=== PATIENT | female | born 1980 | race Caucasian/White ===

== ENCOUNTER 2017-02-14 13:05 | Emergency (ER) | payer BC ==
[2017-02-14 14:59] VITALS: BP 148/92
--- NOTE | 2017-02-14 15:09 | UC ---
Dental HPI - HPI Summary HPI Summary: 36 female presents to with complaints of left upper dental pain that began on tuesday and has since worsened. Patient is experiencing pain of left side of face/jaw. Patient denies drainage, swelling, trouble breathing or trouble swallowing. Does have trouble chewing and eating due to pain. Is able to eat soft foods and drink liquids. Denies fever/chills. Has had root canal on tooth before. Denies any known trauma. No other complaints. No PMHx. Has been taking ibuprofen/aleve without relief, and using topical ambical. - History of Current Complaint Chief Complaint: UCDentalProblem Stated Complaint: DENTAL COMPLAINT Time Seen by Provider: 02/14/17 14:52 Hx Obtained From: Patient Hx Last Menstrual Period: unknown, nexplanon Onset/Duration: Sudden Onset, Lasting Days, Still Present, Worse Since Severity: Moderate Pain Intensity: 9 Pain Scale Used: 0-10 Numeric Aggravating Factor(s): Chewing Alleviating Factor(s): Topical Meds - for ~10minutes - Allergies/Home Medications Allergies/Adverse Reactions: Allergies Allergy/AdvReac Type Severity Reaction Status Date / Time Sulfamethoxazole Allergy Unknown Unknown Verified 02/14/17 14:59 w/Trimethoprim Reaction [From Bactrim] Details Home Medications: Home Medications Insulin Aspart Protamine & Asp [Novolog Mix 70/30 (70-30) 100 Unit/ml] 1 inj SC TID 02/14/17 [History Confirmed 02/14/17] Insulin GLARGINE(*) [Lantus(*)] 14 units SUBCUT Q24H 02/14/17 [History Confirmed 02/14/17] PMH/Surg Hx/FS Hx/Imm Hx - Additional Past Medical History Additional PMH: Denies DM HTN and asthma - Surgical History Surgical History: Yes Surgery Procedure, Year, and Place: cyst left ovary--benign. back surgery/ herniated disc L-S spine - Family History Known Family History: Positive: None - Social History Alcohol Use: Rare Substance Use Type: None Smoking Status (MU): Never Smoked Tobacco - Immunization History Vaccination Up to Date: Yes Review of Systems Constitutional: Negative Skin: Negative ENT: Dental Pain Respiratory: Negative Cardiovascular: Negative Neurological: Negative All Other Systems Reviewed And Are Negative: Yes Physical Exam Triage Information Reviewed: Yes Appearance: Well-Appearing, No Pain Distress, Well-Nourished Vital Signs: Initial Vital Signs Temp 98.7 F 02/14/17 14:51 Pulse 82 02/14/17 14:51 Resp 16 02/14/17 14:51 BP 148/92 02/14/17 14:51 Pulse Ox 98 02/14/17 14:51 elevated BP patient in pain, follow up recheck in 2-4 weeks Vital Signs Reviewed: Yes Eyes: Positive: Conjunctiva Clear ENT: Positive: Hearing grossly normal, Pharynx normal, TMs normal, Uvula midline - no sign of peritonsillar abscess. patent airway. Negative: Tonsillar swelling, Tonsillar exudate, Trismus, Muffled voice, Sinus tenderness Dental: Positive: Percussion Tenderness @, Gross Decay/Caries @, Dental Fracture @, Cervical Lymphadenopathy, Other: - tender left upper #16. normal parotid and glands on palpation. no obvious edema. Negative: Abscess @ - no visualized Neck: Positive: Supple, Nontender Respiratory: Positive: Chest non-tender, Lungs clear, Normal breath sounds, No respiratory distress, No accessory muscle use Cardiovascular: Positive: RRR, No Murmur, Pulses Normal Neurological Exam: Normal Skin Exam: Normal Dental Complaint Course/Dx - Course Course Of Treatment: will treat for dental abscess/infection and give pain medication for pain. continue ibuprofen/ambicil. salt water swishes and good oral hygiene. follow up dentist. no other concerns at this time. aware of worsening signs and symptoms to watch out for. - Differential Dx/Diagnosis Differential Diagnosis/Dx: Dental Abscess, Dental Caries, Fractured Tooth Provider Diagnoses: toothache, dental infection Discharge - Discharge Plan Condition: Stable Disposition: HOME Prescriptions: Amoxicillin PO (*) [Amoxicillin 500 MG CAP*] 500 mg PO Q12H #20 cap HYDROcodone/ACETAMIN 5-325 MG* [[place] 5-325 TAB*] 1 tab PO Q6H PRN #10 tab MDD 2 PRN Reason: Pain Patient Education Materials: Dental Abscess (ED), Toothache (ED) Referrals: No Primary Care Phys,NOPCP [Primary Care Provider] - [facility] REFERRAL [Outside] Additional Instructions: Take prescribed medication as directed. Continue ibuprofen as needed for pain and inflammation. Increase fluid intake and get plenty of rest. Salt water swishes and good oral hygiene. Follow up with dentist. Any new or worsening symptoms please seek medical attention promptly.
== END 2017-02-14 15:26 | disposition home or self-care (01) ==
LOC: UCCORT 13:05
DX: K04.7 Periapical abscess without sinus (principal); K02.9 Dental caries, unspecified; Z88.2 Allergy status to sulfonamides
CPT/HCPCS: 99212; G0463

== ENCOUNTER 2017-08-30 10:00 | Emergency (ER) | payer BC, OTHER ==
[2017-08-30] MEDS ORDERED: Tetan/Diph/Pertus SYR(Tdap)* 0.5 ML SYR(BOOSTRIX) use SYR IM ONE (11:27)
--- NOTE | 2017-08-30 11:33 | UC ---
Bite Injury/Animal HPI - HPI Summary HPI Summary: Patient states that she was invited to a customer's home. Upon entering the home, his [place] dog bit her on the left lower leg. This occurred just prior to arrival. She reports that the dog is up-to-date on its rabies shot. She notes 2 small wounds to the outside of her left lower leg. Patient's last tetanus is unknown. She denies any other complaints. - History of Current Complaint Stated Complaint: DOG BITE - WC Time Seen by Provider: 08/30/17 10:55 Hx Obtained From: Patient Hx Last Menstrual Period: unknown, nexplanon Severity Currently: Mild Severity Initially: Mild Onset/Duration: Sudden Onset Type of Bite: Pet - dog Has Animal Been Immunized?: Yes Character: Abrasion/Laceration Aggravating Factor(s): Nothing Alleviating Factor(s): Nothing Associated Signs And Symptoms: Negative: Fever, Erythema, Drainage, Swelling, Numbness/Tingling, Limited ROM Animal Available for Observation: Yes - Allergies/Home Medications Allergies/Adverse Reactions: Allergies Allergy/AdvReac Type Severity Reaction Status Date / Time sulfamethoxazole Allergy Unknown Verified 08/30/17 11:31 [From Bactrim] Reaction Details trimethoprim [From Bactrim] Allergy Unknown Verified 08/30/17 11:31 Reaction Details Home Medications: Home Medications Insulin Detemir (NF) [Levemir (NF)] 40 unit SUBCUT DAILY 08/30/17 [History Confirmed 08/30/17] Lisinopril [Lisinopril 30 MG-] 30 mg PO DAILY 08/30/17 [History Confirmed ] PMH/Surg Hx/FS Hx/Imm Hx Endocrine History: Diabetes Cardiovascular History: Hypertension - Surgical History Surgical History: Yes Surgery Procedure, Year, and Place: cyst left ovary--benign. back surgery/ herniated disc L-S spine - Family History Known Family History: Positive: Hypertension, Diabetes - Social History Occupation: Employed Full-time Alcohol Use: Rare Substance Use Type: None Smoking Status (MU): Never Smoked Tobacco - Immunization History Vaccination Up to Date: Yes Review of Systems Constitutional: Negative Skin: Other - bite LLE Eyes: Negative ENT: Negative Respiratory: Negative Cardiovascular: Negative Gastrointestinal: Negative Genitourinary: Negative Motor: Negative Neurovascular: Negative Musculoskeletal: Negative Neurological: Negative Psychological: Negative Is Patient Immunocompromised?: No All Other Systems Reviewed And Are Negative: Yes Physical Exam Triage Information Reviewed: Yes Appearance: Well-Appearing Vital Signs Reviewed: Yes Eyes: Positive: Conjunctiva Clear ENT: Positive: Normal ENT inspection Neck: Positive: Supple, Nontender, No Lymphadenopathy Respiratory: Positive: Lungs clear, Normal breath sounds Cardiovascular: Positive: RRR, No Murmur Abdomen Description: Positive: Nontender, No Organomegaly, Soft Bowel Sounds: Positive: Present Musculoskeletal: Positive: ROM Intact Neurological: Positive: Alert Psychological: Positive: Age Appropriate Behavior Skin Exam: Normal, Other - There are 2 small but somewhat deeper abrasions to the left lower extremity lateral aspect. There is no erythema, warmth, swelling or bleeding. The leg has full sensorivascular motor function. Bite Injury Course/Dx - Course Course Of Treatment: BP ELEVATED HERE. HAS HX TX HTN. ELEVATION VISIT RELATED WELL. - Differential Dx/Diagnosis Provider Diagnoses: dOG BITE LLE Discharge - Sign-Out/Discharge Documenting (check all that apply): Patient Departure - Discharge Plan Condition: Stable Disposition: HOME Prescriptions: Amoxicillin/Clavulanate TAB* [Augmentin TAB 875*] 875 mg PO BID 7 Days #14 tab Patient Education Materials: Animal Bite (ED) Referrals: Scott Best DO [Primary Care Provider] - If Needed - Billing Disposition and Condition Condition: STABLE Disposition: Home
[2017-08-30 11:40] VITALS: BP 149/99
== END 2017-08-30 12:00 | disposition home or self-care (01) ==
LOC: UCCORT 10:00
DX: S81.852A Open bite, left lower leg, initial encounter (principal); Z88.1 Allergy status to other antibiotic agents; E11.9 Type 2 diabetes mellitus without complications; Z79.4 Long term (current) use of insulin; I10 Essential (primary) hypertension; W54.0XXA Bitten by dog, initial encounter; Y93.89 Activity, other specified; Y92.009 Unspecified place in unspecified non-institutional (private) residence as the place of occurrence of the external cause; Y99.0 Civilian activity done for income or pay
CPT/HCPCS: 90471; 90715; 99212; G0463